=== PATIENT | female | born 1985 | race Caucasian/White ===

== ENCOUNTER 2021-02-27 01:18 | Inpatient (IN) | payer BC ==
[~2021-02-27] VITALS: Ht 175.3 cm; Wt 114.1 kg
[2021-02-27] VITALS (39 sets, daily range): BP systolic 111–161; BP diastolic 60–95; PULSE 54–100; TEMP 97.8–98.3
[2021-02-27] MEDS ORDERED: OSCAL 500 TAB500 MG (01:38)
[2021-02-27] MEDS ORDERED: COLACE 100100 MG/CAP PO (01:39)
[2021-02-27] MEDS ORDERED: PRENATAL TABLET PO (01:39)
[2021-02-27] MEDS ORDERED: VITAMIN D31000 IU PO (01:39)
--- NOTE | 2021-02-27 01:45 | NUR ---
G1 at 39.3 weeks gestation to LDR6 with c/o contractions throughout the day that have gotten progressively stronger in the last few hours. She reports good movement, denies LOF or vaginal bleeding. FHR 130 bpm, reactive. Regular contractions q2-3 minutes, she is tense through them. VSS. SVE /-2. She was seen in the office today and was dilated /-3. Plan of care reviewed with patient and spouse.
--- NOTE | 2021-02-27 02:45 | NUR ---
SVE with little change from previous exam but patient has gotten progressively more uncomfortable with contractions. She is tense and breathing and moaning through them. Dr. Langston called and updated and admit orders received. Plan of care reviewed with patient and spouse.
--- NOTE | 2021-02-27 03:05 | NUR ---
0305 IV started in left hand with labs drawn from site. LR bolus infusing. Patient request epidural. DIRECTOR OF RESTAURANTS notified.
[2021-02-27 03:29] LABS: BASO % 0.2 % (0.0-2.0); EOS % 0.1 % (0-4.0); GRAN # 11.5 K/mm3 (1.4-6.5); GRAN % 83.5 % (42.2-75.2); HEMATOCRIT 38.4 % (37.0-47.0); HEMOGLOBIN 13.1 g/dl (12.5-16.0); LYMPH # 1.3 K/mm3 (1.2-3.4); LYMPH % 9.2 % (20.0-51.0); MEAN CELL VOLUME 86 fl (80.0-100.0); MEAN CORPUSCULAR HEMOGLOBIN 29 pg (27.0-31.0); MEAN CORPUSCULAR HGB CONC 34 g/dl (33.0-37.0); MEAN PLATELET VOLUME 11.2 fl (7.4-10.4); MONO # 0.9 K/mm3 (0.1-0.6); MONO % 6.3 % (1.7-9.3); PLATELET COUNT 211 K/mm3 (130-400); RED BLOOD COUNT 4.45 M/mm3 (4.10-5.30); REDCELL DISTRIBUTION WIDTH-CV 13.2 % (11.5-14.5)
--- NOTE | 2021-02-27 03:31 | NUR ---
[id number] Patient standing, FHR intermittenly monitoring. 0325 H.Kristin, MAINTENANCE MECHANIC ELEVATORS to room to place epidural. Patient sits upright on the side of the bed for procedure. FHR difficult to monitor, intermittently monitors maternal HR as it coorelates with spO2 tracing. Single shot is administered at 0331. See anesthesia record for details of placement. 0340 Patient wedged to left side. Comfortable with epidural.
--- NOTE | 2021-02-27 07:15 | NUR ---
CALL FROM FOR PT UPDATE. UPDATE PROVIDED. ORDERS TO START PITOCIN PER PROTOCOL. PT AGREEABLE. WILL BEGIN PITOCIN AT 2MU/HR.
--- NOTE | 2021-02-27 08:05 | NUR ---
0850: AT BEDSIDE. SVE /-2. AROM WITH CLEAR FLUID AT THIS TIME. PT TOLERATED PROCEDURE WELL.
[2021-02-27 08:13] LABS: ALBUMIN 2.9 gm/dL (3.5-5.0); BILIRUBIN,TOTAL 0.4 mg/dL (0.2-1.2); CALCIUM 10.1 mg/dL (8.4-10.2); CREATININE, serum 0.67 mg/dL (0.57-1.11); POTASSIUM 3.8 mmol/L (3.5-4.5); TOTAL PROTEIN 6.6 gm/dL (6.2-8.1)
--- NOTE | 2021-02-27 11:07 | NUR ---
1000: SVE COMPLETE/+2 PER . PT COMPLETES ONE PRACTICE PUSH WITH GOOD PUSHING EFFORTS NOTED. WILL BEGIN PUSHING AND PREP ROOM FOR DELIVERY. 1107: OF VIABLE MALE INFANT AT THIS TIME PER . INFANT PLACED ON MATERNAL ABDOMEN. CARE ASSUMED BY ADEOLA RICO. CORD CLAMPED X2 AND CUT BY FOB. 1110: OF PLACENTA. PITOCIN INFUSING PER PROTOCOL. FUNDUS FIRM AT UMBILICUS. MODERATE LOCHIA NOTED WITH NO CLOTTING. WILL CONTINUE FUNDAL MASSAGE PER PROTOCOL AND MONITOR BLEEDING. 1345: FUNDUS FIRM AT UMBILICUS. SCANT BLEEDING NOTED. ICE PACK TO PERINEUM. PT REPORTS FULL SENSATION TO BLE. VITAL SIGNS STABLE. ABLE TO BEAR FULL WEIGHT AND AMBULATE WITH SBA. ASSISTED TO RESTROOM AND INTO CLEAN GOWN, UNDERWEAR AND NEW PAD. ISSAC CARE PROVIDED BY THIS RN. LOCHIA REMAINS SMALL WITH NO CLOTS. EPIDURAL REMOVED FROM BACK. PT TO ROOM VIA WHEELCHAIR TO CONTINUE PP RECOVERY PER PROTOCOL. VITAL SIGNS REMAIN STABLE. PT EDUCATED ON NEED TO MEASURE FIRST THREE VOIDS FOLLOWING DELIVERY. AGREEABLE TO PP POC.
[2021-02-27 11:35] LABS: COLLECTION METHOD IN
[2021-02-27 11:43] LABS: MUCOUS Present /lpf; PH 7 (5-8); SQUAMOUS EPITHELIAL None Seen /hpf; URINE APPEARANCE Hazy; URINE BACTERIA None Seen /hpf; URINE BILIRUBIN Negative (NEGATIVE); URINE BLOOD Negative (NEGATIVE); URINE COLOR Yellow; URINE GLUCOSE Negative (NEGATIVE); URINE KETONE Negative (NEGATIVE); URINE LEUKOCYTE ESTERASE Negative (NEGATIVE); URINE NITRATE Negative (NEGATIVE); URINE PROTEIN(semi-quant) Negative (NEGATIVE); URINE RBC 20-50 /hpf; URINE UROBILINOGEN Negative (NEGATIVE)
[2021-02-28 02:00] VITALS: BP 128/70; PULSE 78; TEMP 97.7
[2021-02-28 07:23] VITALS: BP 122/76; PULSE 78; TEMP 97.8
[2021-02-28] MEDS ORDERED: IBU800 M1 PO (09:52)
[2021-02-28 21:15] VITALS: BP 109/64; PULSE 74; TEMP 98.2
[2021-03-01 07:52] VITALS: BP 114/62; PULSE 68; TEMP 98.1
--- NOTE | 2021-03-01 09:34 | NUR ---
Initial visit; Parents thanked Senior Water/Wastewater Engineer for offering congratulations for the of their son. Senior Water/Wastewater Engineer offered God's blessings and thanked family for choosing [facility].
== END 2021-03-01 10:47 | disposition home or self-care (01) | DRG 807 ==
LOC: LDRO 01:18 → LDR 02:44 → OB 02:44
PROVIDERS: Obstetrics & Gynecology; ADMIT Student in an Organized Health Care Education/Training Program
PROC: 0KQM0ZZ Repair Perineum Muscle, Open Approach (ICD-10-PCS; principal; 2021-02-27)
PROC: 10E0XZZ Delivery of Products of Conception, External Approach (ICD-10-PCS; 2021-02-27)
DX: O13.4 Gestational [pregnancy-induced] hypertension without significant proteinuria, complicating childbirth (principal); Z37.0 Single live birth; Z3A.39 39 weeks gestation of pregnancy; O62.1 Secondary uterine inertia; O99.214 Obesity complicating childbirth; E66.9 Obesity, unspecified; O70.1 Second degree perineal laceration during delivery; J45.909 Unspecified asthma, uncomplicated; O75.89 Other specified complications of labor and delivery
CPT/HCPCS: J2590; J7120

== ENCOUNTER → 2024-01-01 | Outpatient (CLI) | payer BC ==
[~2024-01-01] MED LIST: COLACE 100100 MG/CAP PO; IBU800 M1 PO; OSCAL 500 TAB500 MG; PRENATAL TABLET PO; VITAMIN D31000 IU PO
== END ==
LOC: MC.RAD 06:12
DX: Z12.31 Encounter for screening mammogram for malignant neoplasm of breast (principal); N64.89 Other specified disorders of breast